=== PATIENT | female | born 1965 | race Hispanic/Latino ===

== ENCOUNTER 2019-02-27 17:28 | Emergency (ER) | payer BC ==
[~2019-02-27] VITALS: Ht 152.4 cm; Wt 50.0 kg
[2019-02-27] MEDS ORDERED: PERCOCET 10/31 COMBO PO (18:47)
[2019-02-27 19:42] VITALS: BP 115/87
== END 2019-02-27 19:40 | DRG 563 ==
LOC: ED 17:28
PROC: 2W3RX1Z Immobilization of Left Lower Leg using Splint (ICD-10-PCS; principal; 2019-02-27)
DX: S82.852A Displaced trimalleolar fracture of left lower leg, initial encounter for closed fracture (principal); F17.200 Nicotine dependence, unspecified, uncomplicated; W09.2XXA Fall on or from jungle gym, initial encounter; Z72.89 Other problems related to lifestyle